=== PATIENT | male | born 1980 ===

== ENCOUNTER 2023-04-12 13:35 | Emergency (ER) | payer SELFPAY ==
[2023-04-12] MEDS ORDERED: Sodium Chloride 0.9% 10 ML Syringe FLUSH PRN (14:22)
[2023-04-12 14:36] LABS: BASOPHILS PERCENT AUTO 0.3 % (0.0-1.0); EOSINOPHILS PERCENT AUTO 0.5 % (1.0-3.0); HEMATOCRIT 42.5 % (40.0-54.0); HEMOGLOBIN 14.4 g/dL (14.0-18.0); LYMPHOCYTES PERCENT AUTO 19.2 % (20.5-50.1); MEAN CORPUSCULAR HEMOGLOBIN 29.6 pg (27.0-34.0); MEAN CORPUSCULAR HGB CONC 33.9 g/dL (33.0-35.0); MEAN CORPUSCULAR VOLUME 87.4 fL (80-100); MONOCYTES PERCENT AUTO 10.9 % (2-8); NEUTROPHILS PERCENT AUTO 69.1 % (42.2-75.2); PLATELET COUNT,PLT 282 10^3/uL (150-450); RED BLOOD CELL COUNT 4.86 10^6/uL (4.6-6.2); WHITE BLOOD CELL COUNT,WBC 11.7 10^3/uL (5.0-10.0)
[2023-04-12 14:47] LABS: MONONUCLEOSIS SCREEN NEGATIVE
[2023-04-12] MEDS ORDERED: Iopamidol 612 MG/ML 100 ML Bottle IVPUSH ONE (14:50)
[2023-04-12 14:54] LABS: A/G RATIO 0.7; ALANINE AMINOTRANSFERASE,ALT 69 U/L (16-63); ALBUMIN 3.4 g/dL (3.4-5.0); ALKALINE PHOSPHATASE 112 U/L (46-116); ANION GAP 14.2 mEq/L (7-13); ASPARTATE AMNIOTRANSFERASE,AST 30 U/L (15-37); BILIRUBIN TOTAL 0.4 mg/dL (0.2-1.0); BLOOD UREA NITROGEN,BUN 11 mg/dL (7-18); BUN/CREATININE RATIO 12.2 (No establ ref range); C-REACTIVE PROTEIN 15.07 ng/dL (<=0.50); CALCIUM 9.3 mg/dL (8.5-10.1); CARBON DIOXIDE,CO2 30 mmol/L (21-32); CHLORIDE,CL 100 mmol/L (98-107); EST CRCL DRUG DOSING (CG) 96.91 mL/min; GLUCOSE RANDOM 105 mg/dL (70-99); POTASSIUM,K 4.2 mmol/L (3.5-5.1); PROTEIN TOTAL,TP 8.3 g/dL (6.4-8.2); SODIUM,NA 140 mmol/L (136-145)
[2023-04-12 15:00] LABS: ESTIMATED GFR 107 mL/min (>=60)
== END 2023-04-12 16:32 | disposition home or self-care (01) ==
LOC: DL.ED 13:35
DX: B08.5 Enteroviral vesicular pharyngitis (principal)
CPT/HCPCS: 36415; 70491; 80053; 85025; 86140; 86308; 87070; 87081; 87205; 87430; 99284; J3490; Q9967